=== PATIENT | female | born 1975 | race Hispanic/Latino ===

== ENCOUNTER 2023-10-01 17:30 | Observation (INO) | payer SELFPAY ==
--- OUTSIDE RECORDS SUMMARY | 2023-10-01 17:33 | XMS REPORT | Continuity of Care Document ---
Author Name Unknown Address [address] [facility] [address] [place] [address] [facility] thconnect Address [address] [facility] [address] [place] [address] Care Team Providers Care Certified Professional Midwife Name Role Phone TY F GIOVANNI [facility] Care Physician Unavailable RUDY DEVINE Attending Clinician Unavaila JM Simmons Attending Clinician Unavail able JM BLOOD Attending Clinician Unavail able STONE MERAZ Attending Clinician Unavailable BAO WIGGINS Attending Clinician Unavailable KHOI PRADHAN Attending Clinician Unavailable BAO WIGGINS Admitting Clinician Unavailable Payers Payer Name Policy Type Policy Number Effective Date Expirati on Date Source MEDICAID PENDING PENDING 2020 00:00:00 Allergies, Adverse Reactions, Alerts Allergy Name Allergy Type Status Severity Reaction(s) Onset Date Inactive Date Treating Clinician Comments Source NO KNOWN ALLERGIE S Drug Class Active [facility] Encounters Start Date/Time End Date/Time Encounter Type Admission Type Attending Clinicians Care Facility Care Department Encounter ID Source 2023-08-27 08:26:21 2023-08-27 08:26:21 Outpatient [facility] [id number] Ty Bautista Giovanni 2023-08-25 11:43:57 2023-08-25 11:43:57 Outpatient [facility] [id number] Ty Nieves 2023-07-29 14:15:53 2023-07-29 14:15:53 Outpatient [facility] [id number] Ty Nieves 2023-01-29 11:04:57 2023-01-29 11:04:57 Outpatient [facility] [id number] Ty Nieves 2022-07-24 14:05:58 2022-07-24 14:05:58 Outpatient [facility] [id number] Ty Nieves 2021-02-01 10:00:00 2021-02-01 10:00:00 Outpatient RUDY RIBERA [facility] [id number] [facility] 2021-01-16 10:00:00 2021-01-16 10:00:00 Outpatient RUDY RIBERA [facility] [id number] [facility] 2020-12-29 13:40:00 2020-12-29 13:40:00 Outpatient JM PASCAL HOWARD [facility] [id number] [facility] 2020-12-19 14:40:00 2020-12-19 14:40:00 Outpatient STONE GARCIA [facility] [id number] [facility] 2020-12-16 13:39:00 2020-12-17 11:15:00 Outpatient Anni BAO WIGGINS [facility] [id number] [facility] 2018-12-02 08:11:10 2018-12-02 09:49:00 Emergency X KHOI PRADHAN [facility] [id number] [facility] 2011-09-18 00:00:00 2011-09-18 12:43:00 Outpatient [facility] [id number] [facility] 2011-08-07 00:00:00 2011-08-07 00:00:00 Outpatient [facility] [id number] [facility] Results Test Description Test Time Test Comments Results Result Co mments Source COMPREHENSIVE METABOLIC [id number] 05:04:34* Test Item Value Reference Range Interpretation Comme nts GLUCOSE (test code = 2217) 154 MG/DL 70-99 H BUN (test code = 2207) 18 MG/DL 6-20 CREATININE (test code = 2213) 0.40 MG/DL 0.60-1.30 L eGFR (2020 CKD-EPI) (test code = ) 122 ML/MIN/1.73 >60 CALC BUN/CREAT (test code = 2234) 45 RATIO 6-28 H SODIUM (test code = 2230) 141 MEQ/L 133-146 POTASSIUM (test code = 2227) 4.2 MEQ/L 3.5-5.4 CHLORIDE (test code = 2214) 99 MEQ/L 95-107 CARBON DIOXIDE (test code = 2205) 26 MEQ/L 19-31 CALCIUM (test code = 2208) 9.6 MG/DL 8.5-10.5 PROTEIN, TOTAL (test code = 2228) 7.5 G/DL 6.1-8.3 ALBUMIN (test code = 2200) 5.0 G/DL 3.5-5.2 CALC GLOBULIN (test code = 2239) 2.5 G/DL 1.9-3.7 CALC A/G RATIO (test code = 2233) 2.0 RATIO 1.0-2.6 BILIRUBIN, TOTAL (test code = 2206) 0.2 MG/DL <=1.2 ALKALINE PHOSPHATASE (test code = 2203) 93 U/L 40-123 AST (test code = 2217) 16 U/L 9-40 ALT (test code = 2218) 18 U/L 5-40 LIPID [id number] 05:04:34* Test Item Value Reference Range Interpretation Comme nts CHOLESTEROL (test code = 2209) 207 MG/DL <200 H TRIGLYCERIDES (test code = 2232) 219 MG/DL <150 H HDL CHOLESTEROL (test code = 2219) 48 MG/DL >39 CALC LDL CHOL (test code = 2236) 125 MG/DL <100 H NOTE: CALCULATED LDL IS BASED ON ADELFO-GARCIA METHOD WHICHINCLUDES ADJUSTABLE TRIGLYCERIDE:VLDL CHOLESTEROL RATIO.THIS FACTOR VARIES BY MEASURED TRIGLYCERIDE AND NON-HDLCHOLESTEROL CONCENTRATIONS WITH INCREASED CALCULATED LDL SEENIN HIGHER TRIGLYCERIDE OR LOWER NON-HDL SPECIMENS. FOR MOREINFORMATION, SEE CLIENT ANNOUNCEMENT AT [email or web address] RISK RATIO LDL/HDL (test code = 223) 2.60 RATIO <3.22 HEMOGLOBIN [id number] 04:27:07* Test Item Value Reference Range Interpretation Comme nts HEMOGLOBIN A1c (test code = 71428) 6.4 % 4.2-5.6 H [employer] GUIDELINES FOR HGB A1C: PREDIABETES/INCREASED RISK . . . . . . . 5.7-6.4% DIAGNOSIS OF DIABETES . . . . . . . . . >=6.5% WITH CONFIRMATION OR APPROPRIATE SYMPTOMS NOTE: ASSAY MAY BE AFFECTED BY HEMOGLOBINOPATHIES (SICKLE CELL ANEMIA, S-C DISEASE, OTHERS) OR ARTIFICIALLY LOWERED BY DECREASED RED CELL SURVIVAL (HEMOLYTIC ANEMIAS, BLOOD LOSS, ETC.). CONSIDER ALTERNATE TESTING OR LABORATORY CONSULTATION. CBC W/AUTO DIFF WITH [id number] 04:15:28* Test Item Value Reference Range Interpretation Comme nts WBC (test code = 1001) 9.7 K/UL 3.5-11.0 RBC (test code = 1002) 5.33 M/UL 3.80-5.40 HEMOGLOBIN (test code = 1003) 12.3 G/DL 11.5-15.5 HEMATOCRIT (test code = 1004) 40.7 % 34.0-45.0 MCV (test code = 1005) 76.4 fL 80.0-99.0 L MCH (test code = 1006) 23.1 PG 25.0-33.0 L MCHC (test code = 1007) 30.2 G/DL 31.0-36.0 L RDW (test code = 1038) 14.3 % 11.5-15.0 NEUTROPHILS (test code = 1008) 77.0 % LYMPHOCYTES (test code = 1010) 16.1 % MONOCYTES (test code = 1011) 4.3 % EOSINOPHILS (test code = 1012) 1.7 % BASOPHILS (test code = 1013) 0.4 % IMMATURE GRANULOCYTES (test code = 1036) 0.5 % NUCLEATED RBCS (test code = 1065) 0.0 /100 WBC'S See_Comment [Automated Virtual Event [employer]] The system which generated this result transmitted reference range: 0.0. The reference range was not used to interpret this result as normal/abnormal. PLATELET COUNT (test code = 1015) 335 K/UL 130-400 ABSOLUTE NEUTROPHILS (test code = 1066) 7.48 K/UL 1.50-7.50 ABSOLUTE LYMPHOCYTES (test code = 1067) 1.57 K/UL 1.00-4.00 ABSOLUTE MONOCYTES (test code = 1068) 0.42 K/UL 0.20-1.00 ABSOLUTE EOSINOPHILS (test code = 1040) 0.17 K/UL 0.00-0.50 ABSOLUTE BASOPHILS (test code = 1069) 0.04 K/UL 0.00-0.20 ABS IMMATURE GRANULOCYTES (test code = 1020) 0.05 K/UL 0.00-0.10 ABS NUCLEATED RBCS (test code = 00411) 0.00 K/UL 0.00-0.11 ALBUMIN/CREATININE RATIO, URINE, [id number] 04:11:17* Test Item Value Reference Range Interpretation Comme nts CREATININE, URINE, CONC. (test code = 2072) 133.1 MG/DL NOT ESTAB ALBUMIN, URINE, RANDOM (test code = 28533) 1.0 MG/DL NOT ESTAB CALC ALBUMIN/CREAT, RND (test code = 25032) 8 MG/G <30 Note: Albumin/Creatinine ratio reference interval reflects ADA and NKF guidelines. [id number] 06:09:33* Test Item Value Reference Range Interpretation Comme nts FERRITIN (test code = 207) 9 NG/ML 13-200 L COMPREHENSIVE METABOLIC [id number] 04:51:34* Test Item Value Reference Range Interpretation Comme nts GLUCOSE (test code = 221) 101 MG/DL 70-99 H BUN (test code = 2207) 14 MG/DL 6-20 CREATININE (test code = 221) 0.40 MG/DL 0.60-1.30 L eGFR (2020 CKD-EPI) (test code = 99433) 123 ML/MIN/1.73 >60 CALC BUN/CREAT (test code = 2235) 35 RATIO 6-28 H SODIUM (test code = 223) 138 MEQ/L 133-146 POTASSIUM (test code = 8) 4.1 MEQ/L 3.5-5.4 CHLORIDE (test code = 2215) 99 MEQ/L 95-107 CARBON DIOXIDE (test code = 6) 24 MEQ/L 19-31 CALCIUM (test code = 2208) 9.9 MG/DL 8.5-10.5 PROTEIN, TOTAL (test code = 2228) 7.2 G/DL 6.1-8.3 ALBUMIN (test code = 2201) 4.6 G/DL 3.5-5.2 CALC GLOBULIN (test code = 2240) 2.6 G/DL 1.9-3.7 CALC A/G RATIO (test code = 2234) 1.8 RATIO 1.0-2.6 BILIRUBIN, TOTAL (test code = 7) 0.2 MG/DL See_Comment [Automated me ssage] The system which generated this result transmitted reference range: <=1.2. The reference range was not used to interpret this result as normal/abnormal. ALKALINE PHOSPHATASE (test code = 4) 93 U/L 40-120 AST (test code = 2218) 21 U/L 9-40 ALT (test code = 2219) 20 U/L 5-40 HEMOGLOBIN [id number] 03:54:42* Test Item Value Reference Range Interpretation Comme nts HEMOGLOBIN A1c (test code = 22736) 6.5 % 4.2-5.6 H [employer]ATION GUIDELINES FOR HGB A1C: PREDIABETES/INCREASED RISK . . . . . . . 5.7-6.4% DIAGNOSIS OF DIABETES . . . . . . . . . >=6.5% WITH CONFIRMATION OR APPROPRIATE SYMPTOMS NOTE: ASSAY MAY BE AFFECTED BY HEMOGLOBINOPATHIES (SICKLE CELL ANEMIA, S-C DISEASE, OTHERS) OR ARTIFICIALLY LOWERED BY DECREASED RED CELL SURVIVAL (HEMOLYTIC ANEMIAS, BLOOD LOSS, ETC.). CONSIDER ALTERNATE TESTING OR LABORATORY CONSULTATION. UNLESS OTHERWISE INDICATED, ALL TESTING PERFORMED AT [facility] [address] [place] [address] MEN'S LEATHER DRESS BELT MAKER: LOI THIBODEAUX M.D. CLIA NUMBER [id number] [facility] [place]. [id number] CBC W/AUTO DIFF WITH [id number] 02:23:19* Test Item Value Reference Range Interpretation Comme nts WBC (test code = 1001) 9.2 K/UL 3.5-11.0 RBC (test code = 1002) 5.18 M/UL 3.80-5.40 HEMOGLOBIN (test code = 1003) 10.1 G/DL 11.5-15.5 L HEMATOCRIT (test code = 1004) 34.3 % 34.0-45.0 MCV (test code = 1005) 66.2 fL 80.0-99.0 L MCH (test code = 1006) 19.5 PG 25.0-33.0 L MCHC (test code = 1007) 29.4 G/DL 31.0-36.0 L RDW (test code = 1038) 16.3 % 11.5-15.0 H NEUTROPHILS (test code = 1008) 72.7 % LYMPHOCYTES (test code = 1010) 18.1 % MONOCYTES (test code = 1011) 5.7 % EOSINOPHILS (test code = 1012) 2.5 % BASOPHILS (test code = 1013) 0.5 % IMMATURE GRANULOCYTES (test code = 1036) 0.5 % NUCLEATED RBCS (test code = 1065) 0.0 /100 WBC'S See_Comment [Automated Virtual Event [employer]] The system which generated this result transmitted reference range: 0.0. The reference range was not used to interpret this result as normal/abnormal. PLATELET COUNT (test code = 1015) 362 K/UL 130-400 ABSOLUTE NEUTROPHILS (test code = 1066) 6.65 K/UL 1.50-7.50 ABSOLUTE LYMPHOCYTES (test code = 1067) 1.66 K/UL 1.00-4.00 ABSOLUTE MONOCYTES (test code = 1068) 0.52 K/UL 0.2-3.8 ABSOLUTE EOSINOPHILS (test code = 1040) 0.23 K/UL 0.00-0.50 ABSOLUTE BASOPHILS (test code = 1069) 0.05 K/UL 0.00-0.20 ABS IMMATURE GRANULOCYTES (test code = 1020) 0.05 K/UL 0.00-0.10 ABS NUCLEATED RBCS (test code = 94387) 0.00 K/UL 0.00-0.11 COMPREHENSIVE METABOLIC [id number] 04:55:31* Test Item Value Reference Range Interpretation Comme nts GLUCOSE (test code = 2217) 91 MG/DL 70-99 BUN (test code = 2208) 18 MG/DL 6-20 CREATININE (test code = 2214) 0.48 MG/DL 0.60-1.30 L eGFR (2020 CKD-EPI) (test code = 29590) 118 ML/MIN/1.73 >60 CALC BUN/CREAT (test code = 2235) 38 RATIO 6-28 H SODIUM (test code = 223) 140 MEQ/L 133-146 POTASSIUM (test code = 2227) 4.0 MEQ/L 3.5-5.4 CHLORIDE (test code = 5) 101 MEQ/L 95-107 CARBON DIOXIDE (test code = 2205) 23 MEQ/L 19-31 CALCIUM (test code = 2208) 9.2 MG/DL 8.5-10.5 PROTEIN, TOTAL (test code = 2228) 7.2 G/DL 6.1-8.3 ALBUMIN (test code = 2200) 4.4 G/DL 3.5-5.2 CALC GLOBULIN (test code = 2239) 2.8 G/DL 1.9-3.7 CALC A/G RATIO (test code = 2233) 1.6 RATIO 1.0-2.6 BILIRUBIN, TOTAL (test code = 2206) <0.2 MG/DL See_Comment [Automated me ssage] The system which generated this result transmitted reference range: <=1.2. The reference range was not used to interpret this result as normal/abnormal. ALKALINE PHOSPHATASE (test code = 2203) 82 U/L 40-118 AST (test code = 2217) 29 U/L 9-40 ALT (test code = 2218) 42 U/L 5-40 H LIPID [id number] 04:55:31* Test Item Value Reference Range Interpretation Comme nts CHOLESTEROL (test code = 0) 136 MG/DL <200 TRIGLYCERIDES (test code = 2) 217 MG/DL <150 H HDL CHOLESTEROL (test code = 2219) 41 MG/DL >39 CALC LDL CHOL (test code = 2236) 66 MG/DL <100 NOTE: CALCULATED LDL IS BASED ON ADELFO-GARCIA METHOD WHICHINCLUDES ADJUSTABLE TRIGLYCERIDE:VLDL CHOLESTEROL RATIO.THIS FACTOR VARIES BY MEASURED TRIGLYCERIDE AND NON-HDLCHOLESTEROL CONCENTRATIONS WITH INCREASED CALCULATED LDL SEENIN HIGHER TRIGLYCERIDE OR LOWER NON-HDL SPECIMENS. FOR MOREINFORMATION, SEE CLIENT ANNOUNCEMENT AT [email or web address] RISK RATIO LDL/HDL (test code = 2237) 1.61 RATIO <3.22 HEMOGLOBIN [id number] 04:35:15* Test Item Value Reference Range Interpretation Comme nts HEMOGLOBIN A1c (test code = 67674) 7.7 % 4.2-5.6 H [employer] ASSOCIATION GUIDELINES FOR HGB A1C: PREDIABETES/INCREASED RISK . . . . . . . 5.7-6.4% DIAGNOSIS OF DIABETES . . . . . . . . . >=6.5% WITH CONFIRMATION OR APPROPRIATE SYMPTOMS NOTE: ASSAY MAY BE AFFECTED BY HEMOGLOBINOPATHIES (SICKLE CELL ANEMIA, S-C DISEASE, OTHERS) OR ARTIFICIALLY LOWERED BY DECREASED RED CELL SURVIVAL (HEMOLYTIC ANEMIAS, BLOOD LOSS, ETC.). CONSIDER ALTERNATE TESTING OR LABORATORY CONSULTATION. UNLESS OTHERWISE INDICATED, ALL TESTING PERFORMED [facility] [employer] [address] [place] [address] MEN'S LEATH[employer] DRESS BELT MAKER: EMERSON HARO M.D. CLIA NUMBER [id number] [facility] [place]. [id number] CBC W/AUTO DIFF WITH [id number] 03:41:48* Test Item Value Reference Range Interpretation Comme nts WBC (test code = 1001) 11.3 K/UL 3.5-11.0 H RBC (test code = 1002) 4.81 M/UL 3.80-5.40 HEMOGLOBIN (test code = 1003) 10.9 G/DL 11.5-15.5 L HEMATOCRIT (test code = 1004) 34.5 % 34.0-45.0 MCV (test code = 1005) 71.7 fL 80.0-99.0 L MCH (test code = 1006) 22.7 PG 25.0-33.0 L MCHC (test code = 1007) 31.6 G/DL 31.0-36.0 RDW (test code = 1038) 13.7 % 11.5-15.0 NEUTROPHILS (test code = 1008) 73.7 % LYMPHOCYTES (test code = 1010) 18.3 % MONOCYTES (test code = 1011) 5.7 % EOSINOPHILS (test code = 1012) 1.1 % BASOPHILS (test code = 1013) 0.4 % IMMATURE GRANULOCYTES (test code = 1036) 0.8 % NUCLEATED RBCS (test code = 1065) 0.0 /100 WBC'S See_Comment [Automated messa ge] The system which generated this result transmitted reference range: 0.0. The reference range was not used to interpret this result as normal/abnormal. PLATELET COUNT (test code = 1015) 280 K/UL 130-400 ABSOLUTE NEUTROPHILS (test code = 1066) 8.36 K/UL 1.50-7.50 H ABSOLUTE LYMPHOCYTES (test code = 1067) 2.08 K/UL 1.00-4.00 ABSOLUTE MONOCYTES (test code = 1068) 0.65 K/UL 0.20-1.00 ABSOLUTE EOSINOPHILS (test code = 1040) 0.12 K/UL 0.00-0.50 ABSOLUTE BASOPHILS (test code = 1069) 0.04 K/UL 0.00-0.20 ABS IMMATURE GRANULOCYTES (test code = 1020) 0.09 K/UL 0.00-0.10 ABS NUCLEATED RBCS (test code = 35187) 0.00 K/UL 0.00-0.11
[2023-10-01] MEDS ORDERED: ASPIRIN 81 MG CHEWABLE TABLET ONE (18:26)
--- NOTE | 2023-10-01 18:48 | RAD REPORT ---
EXAM DESCRIPTION: Elit Single View10/01/2023 6:26 pm CLINICAL HISTORY: CHEST PAIN COMPARISON: CHEST SINGLE VIEW dated 10/18/2013; CHEST SINGLE VIEW dated 05/18/2010 TECHNIQUE: Portable AP view of the chest. FINDINGS: Decreased inspiratory effort limits evaluation. The lungs are clear. No pneumothorax or e ffusion. The cardiomediastinal contours are unremarkable. IMPRESSION: No acute cardiopulmonary process.
[2023-10-01 18:56] LABS: Absolute Lymphocytes (CBC) 1.9 K/uL (0.7-4.9); Hematocrit 36.1 % (36.0-45.0); Lymphocytes % 16.6 % (15.3-44.8); MCV 72.6 fL (80-100); MPV 9.1 fL (7.6-11.3); Platelets 214 thou/uL (152-406); RBC Red Blood Cell Count 4.98 M/uL (3.86-4.86)
[2023-10-01 18:57] LABS: Platelet Estimate ADEQ; Platelets, Giant PRESENT; White Blood Cell Scan OK (OK)
[2023-10-01 18:58] LABS: Blood Morphology Comment NOT SEEN (NOT SEEN)
[2023-10-01 19:11] LABS: Albumin 3.5 g/dL (3.4-5.0); Bilirubin Total 0.3 mg/dL (0.2-1.0); Magnesium 1.8 mg/dL (1.6-2.4); Potassium 3.8 mEq/L (3.5-5.1); Protein, Total 7.7 g/dL (6.4-8.2)
--- NOTE | 2023-10-01 22:17 | ER ---
Nurse's Notes [facility] Name: Gladys Nguyen Age: 48 yrs Sex: Female : 1975 Arrival Date: 10/01/2023 Time: 17:30 Bed 18 Private MD: Diagnosis: Chest pain, unspecified Presentation: 10/01 17:41 Chief complaint: Patient states: CHEST PRESSURE FOR A COUPLE OF DAYS STATES PRESSURE db HASN'T GONE AWAY AND WANTS TO GET CHECKED OUT STATES RADIATES TO LEFT SHOULDER AND ARM. STATES WORSE LAST NIGHT WITH "TIGHTENING". Coronavirus screen: Client denies travel out of the [place] in the last 14 days. At this time, the client does not indicate any symptoms associated with coronavirus-19. Ebola Screen: Patient negative for fever greater than or equal to 101.5 degrees Fahrenheit, and additional compatible Ebola Virus Disease symptoms Patient denies exposure to infectious person. Patient denies travel to an Ebola-affected area in the 21 days before illness onset. No symptoms or risks identified at this time. Initial Sepsis Screen: Does the patient meet any 2 criteria? No. Patient's initial sepsis screen is negative. Does the patient have a suspected source of infection? No. Patient's initial sepsis screen is negative. Risk Assessment: Do you want to hurt yourself or someone else? Patient reports no desire to harm self or others. Onset of symptoms was October 01, 2023. 17:41 Method Of Arrival: Ambulatory db 17:41 Acuity: BEN 2 db Triage Assessment: 17:41 General: Appears in no apparent distress. comfortable, Behavior is calm, cooperative. db 17:43 Pain: Complains of pain in chest Pain radiates to left arm. Neuro: Level of db Consciousness is awake, alert, obeys commands, Oriented to person, place, time, situation. Cardiovascular: Reports chest pain. LAP WINDER: 10/02 09:20 LMP 10/02/2023, unknown ld1 Historical: - Allergies: 10/01 17:43 No Known Allergies; db - PMHx: 17:43 Hypertensive disorder; Diabetes mellitus; db - Immunization history:: Adult Immunizations unknown. - Social history:: Smoking status: unknown. Screenin:29 [facility] ED Fall Risk Assessment (Adult) Score/Fall Risk Level 0 - 2 = Low Risk nj1 Oriented to surroundings, Maintained a safe environment, Hourly rounding (assess needs \\T\\ fall precautionary measures) done. Abuse screen: Denies threats or abuse. Denies injuries from another. Nutritional screening: No deficits noted. Tuberculosis screening: No symptoms or risk factors identified. Assessment: 18:20 Reassessment: Pt not in room at this time. nj1 18:20 Pain: Pain began 5 days ago. nj1 18:28 General: Appears in no apparent distress. comfortable, Behavior is calm, cooperative, nj1 appropriate for age. Pain: Complains of pain in chest Pain currently is 5 out of 10 on a pain scale. Neuro: No deficits noted. Cardiovascular: Patient's skin is warm and dry. Respiratory: Airway is patent Respiratory effort is even, unlabored. 19:00 Reassessment: Patient appears in no apparent distress at this time. Patient and/or jb4 family updated on plan of care and expected duration. Pain level reassessed. Patient is alert, oriented x 3, equal unlabored respirations, skin warm/dry/pink. 20:22 Reassessment: Patient appears in no apparent distress at this time. Patient and/or jb4 family updated on plan of care and expected duration. Pain level reassessed. Patient is alert, oriented x 3, equal unlabored respirations, skin warm/dry/pink. 21:56 Reassessment: Patient appears in no apparent distress at this time. Patient and/or jb4 family updated on plan of care and expected duration. Pain level reassessed. Patient is alert, oriented x 3, equal unlabored respirations, skin warm/dry/pink. 10/02 17:00 General: Pt transported to room 218 via bed. ld1 Vital Signs: 10/01 17:41 Pulse 83; Resp 18; Temp 97.7; Pulse Ox 100% ; Weight 96.62 kg; Height 5 ft. 0 in. ; db 18:20 BP 117 / 64; Pulse 78; Resp 17; Pulse Ox 99% ; Pain 5/10; nj1 20:00 BP 123 / 71; Pulse 88; Resp 16; Pulse Ox 99% on R/A; jb4 21:30 BP 110 / 74; Pulse 80; Resp 16; Pulse Ox 100% on R/A; jb4 17:41 Body Mass Index 41.60 (96.62 kg, 152.4 cm) db 18:20 Pain Scale: Adult nj1 ED Course: 17:33 Patient arrived in ED. mg5 17:33 Leigh Hernandez FNP-C [facility]. kb 17:33 Quinton Patel MD is Attending Physician. kb 17:42 Triage completed. db 17:43 Arm band placed on right wrist. Patient placed in an exam room. db 18:19 Rajani Vann, RN is Primary Nurse. nj1 18:28 XRAY Chest (1 view) In Process Unspecified. EDMS 18:29 Patient has correct armband on for positive identification. Bed in low position. Call nj1 light in reach. Adult w/ patient. Provided Education on: call light, fall precautions. Client placed on continuous cardiac and pulse oximetry monitoring. NIBP monitoring applied. 18:30 Patient maintains SpO2 saturation greater than 95% on room air. nj1 18:38 Missed attempt(s): 22 gauge in right antecubital area. Bleeding controlled, band aid nj1 applied, catheter tip intact. 19:15 Report given to Vane MCCAIN. nj1 19:49 Inserted saline lock: 20 gauge in left hand, using aseptic technique. jb4 21:54 Troponin High Sensitivity Sent. jb4 22:16 Valeri Treadwell MD is Hospitalizing Provider. kb 10/02 09:20 No provider procedures requiring assistance completed. Patient admitted, IV remains in ld1 place. 17:00 Pt transported to room 218. ld1 Administered Medications: 10/01 18:27 Drug: Aspirin PO Chewable Tablet 324 mg PO once; 81 mg tablets x 4 Route: PO; nj1 20:47 Follow up: Response: No adverse reaction me1 Medication: 10/02 09:20 VIS not applicable for this client. ld1 Outcome: 10/01 22:16 Decision to Hospitalize by Provider. kb 10/02 09:20 Admitted to ER Hold. Please see [facility] for further documentation. ld1 Condition: stable Instructed on the need for admit, 17:01 Patient left the ED. ld1 Signatures: Dispatcher [employer] EDMS Leigh Hernandez FNP-C FNP-Luis Manuel Zarco RN RN jb4 Nina Jose RN RN ld1 Tameka Sandoval RN RN db Rajani Vann RN RN nj1 Vane Phan RN RN me1 Sushma Hunt mg5 Corrections: (The following items were deleted from the chart) 10/01 17:43 17:41 Chief complaint: Patient states: CHEST PRESSURE FOR A COUPLE OF DAYS STATES db PRESSURE HASN'T GONE AWAY AND WANTS TO GET CHECKED OUT db
--- NOTE | 2023-10-01 22:17 | EDPHYS ---
Physician Documentation [facility] Name: Gladys Nguyen Age: 48 yrs Sex: Female : 1975 Arrival Date: 10/01/2023 Time: 17:30 Bed 18 Private MD: ED Physician Quinton Patel HPI: 10/01 22:14 This 48 yrs old Female presents to ER via Ambulatory with complaints of Chest kb Pressure. 22:14 Patient is a 48-year-old female with a history of diabetes and hypertension who kb presents for chest pressure to the left side that radiates down the left arm. States that started 4 days ago and got worse last night with tightening. Denies nausea, vomiting, shortness of breath.. VISUAL SPECIALIST: 10/02 09:20 LMP 10/02/2023, unknown ld1 Historical: - Allergies: 10/01 17:43 No Known Allergies; db - PMHx: 17:43 Hypertensive disorder; Diabetes mellitus; db - Immunization history:: Adult Immunizations unknown. - Social history:: Smoking status: unknown. ROS: 22:14 Constitutional: Negative for fever, chills, and weight loss, kb 22:14 Cardiovascular: Positive for chest pain, 22:14 All other systems are negative, Exam: 22:14 Constitutional: This is a well developed, well nourished patient who is awake, alert, kb and in no acute distress. Head/Face: Normocephalic, atraumatic. ENT: Moist Mucous membranes Cardiovascular: Regular rate Respiratory: Respirations even and unlabored. No increased work of breathing. Talking in full sentences Abdomen/GI: Soft, non-tender. No distention Skin: Warm, dry with normal turgor. Normal color. MS/ Extremity: Pulses equal, no cyanosis. Neurovascular intact. Full, normal range of motion. Neuro: Awake and alert, GCS 15, oriented to person, place, time, and situation. Moves all extremities. Normal gait. Vital Signs: 17:41 Pulse 83; Resp 18; Temp 97.7; Pulse Ox 100% ; Weight 96.62 kg; Height 5 ft. 0 in. ; db 18:20 BP 117 / 64; Pulse 78; Resp 17; Pulse Ox 99% ; Pain 5/10; nj1 20:00 BP 123 / 71; Pulse 88; Resp 16; Pulse Ox 99% on R/A; jb4 21:30 BP 110 / 74; Pulse 80; Resp 16; Pulse Ox 100% on R/A; jb4 17:41 Body Mass Index 41.60 (96.62 kg, 152.4 cm) db 18:20 Pain Scale: Adult nj1 MDM: 17:34 Patient medically screened. kb 22:14 Data reviewed: vital signs, nurses notes. kb 22:15 Differential diagnosis: abnormal EKG, acute myocardial infarction, anxiety, coronary kb artery disease chest wall pain. The patient was given aspirin in the Emergency Department. Consideration of Admission/Observation Patient was admitted/placed on observation. Escalation of care including admission/observation considered. Management of patient was discussed with the following: Hospitalist: Dr. Treadwell excepted patient for admission. Dr. Vila, recommends labs. Care significantly affected by the following chronic conditions: Diabetes, Hypertension. Counseling: I had a detailed discussion with the patient and/or guardian regarding the historical points, exam findings, and any diagnostic results supporting the discharge/admit diagnosis, lab results, radiology results, the need for further work-up and treatment in the hospital. ED course: Heart score 4. 10/01 17:44 Order name: CBC with Diff; Complete Time: 19:03 kb 10/01 17:44 Order name: D-Dimer; Complete Time: 19:03 kb 10/01 17:44 Order name: Magnesium; Complete Time: 19:17 kb 10/01 17:44 Order name: Troponin HS; Complete Time: 19:17 kb 10/01 17:44 Order name: CMP; Complete Time: 19:17 kb 10/01 18:58 Order name: CBC Smear Scan; Complete Time: 19:03 EDMS 10/01 21:09 Order name: Troponin High Sensitivity; Complete Time: 22:08 kb 10/02 03:58 Order name: CBC with Automated Diff EDMS 10/02 04:00 Order name: Lipid Profile EDMS 10/02 04:06 Order name: Comprehensive Metabolic Panel EDMS 10/02 04:06 Order name: Troponin High Sensitivity EDMS 10/02 04:06 Order name: Magnesium EDMS 10/02 07:41 Order name: Urinalysis w/ reflexes EDMS 10/02 08:06 Order name: Glucose, Ancillary Testing EDMS 10/02 12:17 Order name: Glucose, Ancillary Testing EDMS 10/02 16:56 Order name: Glucose, Ancillary Testing [facility] 10/01 17:44 Order name: XRAY Chest (1 view); Complete Time: 18:49 kb 10/02 10:18 Order name: NM EDWA 10/01 17:44 Order name: EKG; Complete Time: 17:45 kb 10/01 17:44 Order name: Cardiac monitoring; Complete Time: 18:42 kb 10/01 17:44 Order name: EKG - Nurse/Tech; Complete Time: 18:42 kb 10/01 17:44 Order name: IV Saline Lock; Complete Time: 19:49 kb 10/01 17:44 Order name: Labs collected and sent; Complete Time: 18:42 kb 10/01 17:44 Order name: O2 Per Protocol; Complete Time: 18:42 kb 10/01 17:44 Order name: O2 Sat Monitoring; Complete Time: 18:42 kb Administered Medications: 18:27 Drug: Aspirin PO Chewable Tablet 324 mg PO once; 81 mg tablets x 4 Route: PO; nj1 20:47 Follow up: Response: No adverse reaction me1 Disposition Summary: 10/01/23 22:16 Hospitalization Ordered Notes: Hospitalization Status: Observation kb Provider: Valeri Treadwell Condition: Stable kb Problem: new kb Symptoms: are unchanged kb Bed/Room Type: Standard kb Location: Telemetry/MedSurg (observation)(10/02/23 15:36) em1 Room Assignment: [facility](10/02/23 15:36) em1 Diagnosis - Chest pain, unspecified kb Forms: - Medication Reconciliation Form kb - SBAR form kb - Leadership Thank You Letter kb Signatures: Dispatcher [employer] [facility] Leigh Hernandez, SNOWSPORT INSTRUCTOR-C SNOWSPORT INSTRUCTOR-Ren Wong em1 Tameka Sandoval, RN RN db Sofya Chun rv1 Rajani Vann, RN RN nj1 Vane Phan RN me1 Corrections: (The following items were deleted from the chart) 22:23 22:16 Telemetry/MedSurg (observation) kb rv1 22:23 22:16 kb rv1 10/02 15:36 10/01 22:23 [facility] [place] ER HOLD rv1 em1 10/02 15:36 10/01 22:23 ERHOLD- rv1 em1
[2023-10-01 23:50] VITALS: BMI 41.5
[2023-10-02] MEDS ORDERED: ONDANSETRON 4 MG/2 ML VIAL IV PRN (00:07)
[2023-10-02] MEDS ORDERED: ACETAMINOPHEN 325 MG TABLET PO PRN (00:07)
--- NOTE | 2023-10-02 00:55 | P.HP ---
Certification for Inpatient Patient admitted to: Observation With expected LOS: <2 Midnights Practitioner: I am a practitioner with admitting privileges, knowledge of patient current condition, hospital course, and medical plan of care. Services: Services provided to patient in accordance with Admission requirements found in Title 42 Section 412.3 of the Code of Federal Regulations Patient History Date of Service: 10/01/23 Reason for admission: Chest pain History of Present Illness: 48-year-old female with a history of diabetes mellitus, hypertension and hyperlipidemia presented with left-sided chest pain that started last week and worsened today. She describes the pain as pressure-like and have been intermittent with exertion but today the pain grew heavier and radiated to the mid back up to the back of the left arm. She denied any shortness of breath with this, nausea or diaphoresis. She has not experienced any edema, orthopnea, shortness of breath, fever or palpitations. On arrival to the ED her vital signs were within normal. She had a WBC of 11.2, MCV 72 and BUN 24. There was no acute EKG findings. Chest x-ray and troponin negative. Allergies No Known Allergies Allergy (Unverified 10/01/23 23:32) Home Medications: Amlodipine [Norvasc] 5 mg PO DAILY 10/01/23 Atorvastatin Calcium 20 mg PO DAILY 10/01/23 Lisinopril/Hydrochlorothiazide [Lisinopril-Hctz 20-25 mg Tab] 20 mg PO DAILY 10/01/23 Metformin HCl 1,000 mg PO BID 10/01/23 Pioglitazone HCl 45 mg PO DAILY 10/01/23 glipiZIDE [Glipizide] 10 mg PO BID 10/01/23 - Past Medical/Surgical History Diabetic: Yes -: hypertension - Social History Smoking Status: Never smoker Alcohol use: No CD- Drugs: No Caffeine use: Yes Place of Residence: Home Review of Systems 10-point ROS is otherwise unremarkable Physical Examination - Vital Signs Temperature: 97.7 F Blood Pressure: 110/74 Pulse: 80 Respirations: 16 Pulse Ox (%): 100 - Physical Exam General: Alert, In no apparent distress, Oriented x3 HEENT: Atraumatic, Normocephalic, PERRLA Neck: Supple, JVD not distended Respiratory: Clear to auscultation bilaterally, Normal air movement Cardiovascular: No edema, Regular rate/rhythm, Normal S1 S2 Gastrointestinal: Normal bowel sounds, Soft and benign Musculoskeletal: No swelling, No erythema, No tenderness Integumentary: No rashes Neurological: Normal speech, Normal strength at 5/5 x4 extr - Studies Laboratory Data (last 24 hrs) 10/01/23 10/01/23 18:37 18:37 WBC 11.20 H Hgb 11.7 L Hct 36.1 Plt Count 214 Sodium 137 Potassium 3.8 BUN 24 H Creatinine 0.51 L Glucose 155 H Magnesium 1.8 Total Bilirubin 0.3 AST 15 ALT 30 Alkaline Phosphatase 111 Assessment and Plan - Plan Chest pain Diabetes mellitus Hypertension Hyperlipidemia Morbid obesity Plan Admit to telemetry Repeat troponin and lipid panel Follow-up echo Blood glucose control Start ASA, PRN nitro NM stress test - Advance Directives Does patient have a Living Will: No Does patient have a Durable POA for Healthcare: No
[2023-10-02] MEDS ORDERED: ASPIRIN EC 81 MG TAB PO ONE ×3 (00:59→01:05)
[2023-10-02] MEDS ORDERED: NITROGLYCERIN 0.4 MG/TAB SL PRN (01:04)
[2023-10-02 03:52] LABS: Hematocrit 35.1 % (36.0-45.0); Lymphocytes % 23.1 % (15.3-44.8); MCV 72.4 fL (80-100); MPV 9.1 fL (7.6-11.3); Platelets 259 thou/uL (152-406); RBC Red Blood Cell Count 4.84 M/uL (3.86-4.86)
[2023-10-02 04:03] LABS: Albumin 3.3 g/dL (3.4-5.0); Bilirubin Total 0.4 mg/dL (0.2-1.0); Magnesium 1.9 mg/dL (1.6-2.4); Potassium 3.5 mEq/L (3.5-5.1); Protein, Total 7.3 g/dL (6.4-8.2); Troponin High Sensitivity 9.1 pg/mL (<58.9)
[2023-10-02] MEDS: INSULIN REGULAR (HUMAN) 100 UNIT/ML SQ SCH (07:30)
[2023-10-02 07:41] LABS: Specific Gravity 1.015 (1.005-1.030); Urine Bacteria 20-50 /HPF (<20); Urine Bilirubin NEGATIVE (Negative); Urine Blood Negative (Negative); Urine Clarity Extremely Turbid (Clear); Urine Color Light-Yellow (Yellow); Urine Glucose NEGATIVE (Negative); Urine Mucus Slight /HPF (None Seen); Urine Protein NEGATIVE (Negative); Urine RBC <5 /HPF (None Seen); Urine Urobilinogen Normal (Normal)
[2023-10-02] MEDS ORDERED: ASPIRIN 81 MG CHEWABLE TABLET ONE (08:12)
[2023-10-02] MEDS ORDERED: INSULIN REGULAR (HUMAN) 100 UNIT/ML ONE ×2 (08:12→12:11)
[2023-10-02] MEDS: ASPIRIN EC 81 MG TAB PO SCH (08:44)
[2023-10-02] MEDS ORDERED: REGADENOSON 0.4 MG/5 ML SYR IV ONE (09:33)
--- NOTE | 2023-10-02 10:15 | TREADPHA ---
DX: CHEST PAIN Date of Study: 10/02/2023 Ht: 5' 0 " Wt: 213 lb 0.17 oz Consulting Physician: ZELDA MEDICATIONS: TYLENOL, ASPIRIN, NOVOLIN-R, NITROSTAT, ZOFRAN HISTORY: 48 YEAR OLD FEMALE WITH COMPLIANTS OF CHEST PAIN. HISTORY OF HYPERTENSION, HYPERLIPIDEMIA, DIABETES MELLITUS, ASTHMA, NON DRINKER, NON SMOKER PHYSICIAL EXAMINATION: RESTING B.P.: 141/69 RESTING H.R.: 66 RESTING EKG: SINUS RHYTHM PROTOCOL: PHARMACOLOGIC EXERCISE TIME: 3:30 B.P. AT PEAK STRESS: 138/70 IMPRESSION: LEXISCAN INJECTED, FOLLOWED BY CARDIOLITE PER PROTOCOL. SEE NUCLEAR MEDICINE REPORT. NO SUPRAVENTRICULAR TACHYCARDIA, VENTRICULAR TACHYCARDIA, PREMATURE ATRIAL COMPLEXES, PREMATURE VENTRICULAR COMPLEXES. NO SIGNIFICANT ST AND T WAVE CHANGES. PATIENT REPORTS CHEST PRESSURE THREE OUT OF TEN THROUGHOUT PROCEDURE.
--- NOTE | 2023-10-02 10:18 | RAD REPORT ---
EXAM DESCRIPTION: NM - Rest Stress Cardiac Imaging - 10/02/2023 10:00 am CLINICAL HISTORY: chest pain Chest pain. COMPARISON: No comparisons TECHNIQUE: The patient was administered approximately 10mCi of Tc 99m Sestamibi prior to resting SPE CT imaging of the heart. The patient was then administered approximately 30 mCi of Tc 99m Sestamibi f ollowing exercise or pharmacologic stress. Multiplanar SPECT images were reviewed. FINDINGS: No stress induced ischemic defect is seen to suggest stress induced ischemia. No fixed def ect is seen to suggest hibernating myocardium or scarred myocardium. The end diastolic volume is 63 ml, the end systolic volume is 14 ml, and the ejection fraction is 77 %. IMPRESSION: No stress induced ischemia.
--- NOTE | 2023-10-02 16:07 | EKG ---
Test Date: 2023-10-01 Test Time: 18:32:07 [employer] Inspector: MAXIMO MEASUREMENT RESULTS: Intervals: Rate: 79 NJ: 176 QRSD: 76 QT: 386 QTc: 442 [place]: P: 44 NJ: 176 QRS: -20 T: 32 INTERPRETIVE STATEMENTS: Normal sinus rhythm Low voltage QRS Possible Lateral infarct, age undetermined Abnormal ECG No previous ECG available for comparison Electronically Signed On 10-02-23 16:04:37 TOP ICER by Kuldeep Cespedes
[2023-10-02 17:35] VITALS: TEMP 98
[2023-10-02 17:36] VITALS: O2SAT 95
[2023-10-02 17:55] VITALS: BP 121/64
--- NOTE | 2023-10-03 07:18 | ECHO ---
HEIGHT: 5 ft 0 in WEIGHT: 213 lb 0 oz DATE OF STUDY: 10/02/[address]: Valeri Treadwell MD 2-DIMENSIONAL: YES M.MODE: YES DOPPLER: YES COLOR FLOW: YES TDS: PORTABLE: YES DEFINITY: BUBBLE STUDY: DIAGNOSIS: CHEST PAIN CARDIAC HISTORY: CATHERIZATION: SURGERY: PROSTHETIC VALVE: PACEMAKER: MEASUREMENTS (cm) DIASTOLIC (NORMALS) SYSTOLIC (NORMALS) IVSd 1.0 (0.6-1.2) LA Diam 3.4 (1.9-4.0) LVEF 74% LVIDd 4.3 (3.5-5.7) LVIDs 2.4 (2.0-3.5) %FS 43% LVPWd 0.9 (0.6-1.2) Ao Diam 2.6 (2.0-3.7) 2 DIMENSIONAL ASSESSMENT: RIGHT ATRIUM: NORMAL LEFT ATRIUM: NORMAL RIGHT VENTRICLE: NORMAL LEFT VENTRICLE: NORMAL TRICUSPID VALVE: MILD TRICUSPID REGURGITATION MITRAL VALVE: NORMAL PULMONIC VALVE: NORMAL AORTIC VALVE: NORMAL PERICARDIAL EFFUSION: NONE AORTIC ROOT: NORMAL LEFT VENTRICULAR WALL MOTION: NORMAL DOPPLER/COLOR FLOW: MILD TRICUSPID REGURGITATION COMMENTS: 1. NORMAL LEFT VENTRICULAR EJECTION FRACTION 60-65% 2. NORMAL WALL MOTION 3. NORMAL DIASTOLIC FUNCTION 4. MILD TRICUSPID REGURGITATION TECHNOLOGIST: LONG ARENAS
== END 2023-10-02 18:40 | disposition home or self-care (01) ==
LOC: ER 17:30 → ERHOLD 22:51 → 2ND 10-02 16:43
PROVIDERS: ADMIT Internal Medicine; ATTEND Hospitalist
DX: R07.9 Chest pain, unspecified (principal); E11.9 Type 2 diabetes mellitus without complications; I10 Essential (primary) hypertension; E78.5 Hyperlipidemia, unspecified; E66.01 Morbid (severe) obesity due to excess calories; Z68.41 Body mass index [BMI] 40.0-44.9, adult
CPT/HCPCS: 36415; 71045; 78452; 80053; 80061; 81001; 82947; 83735; 84484; 85025; 85379; 93005; 93017; 93306; A9500; G0378; J1815; J2785